=== PATIENT | male | born 1960 | race Caucasian/White ===

== ENCOUNTER 2022-04-20 09:45 | Inpatient (IN) | payer MEDICAID, SELFPAY ==
[2022-04-20] VITALS (64 sets, daily range): BP systolic 114–157; BP diastolic 70–97; PULSE 95–116; RESP 14–26; TEMP 36.5–36.6; O2SAT 66–99; BMI 29.3
--- NOTE | 2022-04-20 09:51 | USCV_ITS ---
Doc Adam Age: 61 Gender: M : 1960 Exam Date: 04/20/2022 10:21 Ordering Phys: Malachi Wallis MD Technologist: Salomon Peñaloza Exam Location: [facility] [place] Indication: copd BP: 127 / 97 HR: 100 Rhythm: Sinus Technical Quality: Technically difficult study MEASUREMENTS (Male / Female) Normal Values 2D ECHO LVOT Diameter 2.0 cm LV Ejection Fraction MOD 2C 66.0 % LV Ejection Fraction 2C AL 66.4 % LA Diameter 3.6 cm Aorta at Sinotubular Diameter 2.5 cm DOPPLER MV Area PHT 5.0 cm squared Mitral E to A Ratio 0.8 MV E' Velocity 51.0 cm/s Mitral E to LV E' Septal Ratio 5.8 FINDINGS Left Ventricle Normal left ventricular size, systolic function and wall thickness, with no regional wall motion abnormalities. Normal left ventricular wall thickness. Right Ventricle The right ventricle is normal in size and function. Right Atrium The right atrium is normal in size. Left Atrium The left atrium is normal in size. Mitral Valve There is no mitral regurgitation. Aortic Valve There is no aortic regurgitation. Tricuspid Valve There is no tricuspid regurgitation. Pulmonic Valve There is no pulmonic regurgitation. Pericardium Normal pericardium without effusion. Aorta IVC CONCLUSIONS Technically difficult study Normal left ventricular size, systolic function and wall thickness, with no regional wall motion abnormalities. Normal left ventricular wall thickness. Esteban Tavares MD (Electronically Signed) Final Date: 20 April 2022 15:55 S
[2022-04-20 09:54] LABS: ABG PCO2 58.2 mmHg (35-45); ABG PH Result 7.45 (7.35-7.45); Base Excess ABG 13.2 mmol/L (-2.0-2.0); Blood Gas Operator Identificat AMH; Blood Gas Sample Site Brachial, right; Blood Gas Sample Type Arterial; Oxygen Device NC; PO2 ABG 83.8 mmHg (80.0-100.0)
[2022-04-20] MEDS: ipratropium-albuterol 3 mL Neb INHALATION ×3 (10:04→16:18)
[2022-04-20] MEDS: budesonide 0.5 mg/2 mL Neb INHALATION (10:04)
--- NOTE | 2022-04-20 10:06 | ECG_ITS ---
[facility] Test Date: 2022-04-20 Pat Name: Doc Adam Department: Room: 104 Gender: Male Tufter: : 1960 Requested By: Malachi Wallis Order Number: [id number] Raffi MD: Amy Deng M.D. Measurements Intervals [place] Rate: 103 P: 21 IN: 142 QRS: 69 QRSD: 84 T: 67 QT: 334 QTc: 438 Interpretive Statements SINUS TACHYCARDIA ABNORMAL RHYTHM ECG No previous ECG available for comparison Electronically Signed On 04-21-2022 7:06:08 ANESTHESIA TECHNICIAN by Amy Deng M.D. [id number]
[2022-04-20 10:24] LABS: Basophils % 0.1 %; Hematocrit 43.3 % (42.0-52.0); Hemoglobin 13.8 g/dL (11.7-16.6); Lymphocytes # 0.5 10^3/uL (0.8-4.8); Lymphocytes % 2.4 %; Mean Corpuscular HGB Conc 31.9 g/dL (30.0-36.0); Mean Corpuscular Volume 100.5 fl (80-94); Mean Platelet Volume 10.9 fL (7.4-10.4); Monocytes # 0.4 10^3/uL (0.2-0.9); Monocytes % 2.4 %; Neutrophils # 17.49 10^3/uL (1.8-7.7); Neutrophils % 94.5 %; Nucleated Red Blood Cells % 0 %; Platelet Count 200 10^3/cmm (130-400); Red Blood Count 4.31 10^6/uL (4.1-5.3); Red Cell Distribution Width 13.5 % (12.1-15.1); White Blood Count 18.5 10^3/uL (4.0-10.0)
--- NOTE | 2022-04-20 10:33 | USCV_ITS ---
Kia Doc Age: 61 Gender: M : 1960 Exam Date: 04/20/2022 10:42 Ordering Phys: Malachi Wallis MD Technologist: Salomon Peñaloza Exam Location: [facility] Indication: lt arm swelling PROCEDURES: Venous duplex imaging was performed in only the left upper extremity. The following venous structures were evaluated: internal jugular vein, subclavian vein, axillary vein, and brachial veins. In addition, the basilic vein and cephalic vein. FINDINGS: No evidence of deep vein thrombosis or superficial thrombophlebitis in the left upper extremity. CONCLUSIONS No evidence of thrombus of the left upper extremity veins. Roddy Urban MD (Electronically Signed) Final Date: 20 April 2022 13:54 S
[2022-04-20 10:38] LABS: Estmated Average Glucose 229; Hemoglobin A1C 9.6 % (4.0-6.0)
--- NOTE | 2022-04-20 10:43 | PM.HP ---
Providers/Chief Complaint Admitting Physician: Iam Ceballos Primary Care Provider: AYAN Provider Chief Complaint: COPD Exaberation History of Present Illness Doc Adam is a 61 year old male with a past medical history of COPD oxygen dependent, history of CHF, insulin-dependent type 2 diabetes mellitus, hypertension, who presents [facility] as a transfer from [facility] due to shortness of breath. Patient tells me that he quit smoking a few weeks ago, he has COPD, oxygen dependent, he has been increasingly short of breath, increased productive cough, he is received a flu vaccine, has received his COVID-vaccine. But he progressively felt more short of breath, increased productive cough, also complaining of substernal chest pain. No cardiovascular history, no history of CAD, history of stenting, no history of stress testing. He presented to [facility], was diagnosed with acute hypoxic hypercarbic respiratory failure, transition to BiPAP, tolerated BiPAP well, had a CT angiogram of his chest no acute pulmonary embolism, but did find bronchiolitis, and emphysema, had leukocytosis over 25,000, neutrophilic, had received Solu-Medrol, Levaquin, transferred to [facility] for further evaluation. Currently he is alert oriented x3, normal canal, he is on 3 L, but being put on BiPAP, he feels better. Review of Systems Const: Denies: fever(s) Eyes: Denies: change in vision Card: Denies: chest pain Resp: Reports: dyspnea GI: Denies: abdominal pain : Denies: flank pain Musc: Denies: back pain Skin/Breast: Denies: rash Neuro: Denies: headache(s) Medications/Allergies Allergies Allergy/AdvReac Type Severity Reaction Status Date / Time No Known Allergies Allergy Unverified 04/20/22 10:54 PFSH Acute PFSH: Medical History (Updated 04/20/22 @ 10:51 by Malachi Wallis MD) CHF (congestive heart failure) Chronic pain Hypertension Insulin dependent type 2 diabetes mellitus Surgical History (Updated 04/20/22 @ 10:48 by Malachi Wallis MD) History of cholecystectomy Family History (Updated 04/20/22 @ 10:49 by Malachi Wallis MD) Mother Lung disease Father COPD (chronic obstructive pulmonary disease) Social History (Updated 11/14/22 @ 10:49 by Malachi Wallis MD) Smoking and tobacco status: current some day smoker Alcohol intake: never Substance/Drug Use: never Vitals/I&O/Wt Last Vital Signs Pulse 103 H 04/20/22 10:14 Resp 16 04/20/22 10:14 Pulse Ox 95 04/20/22 10:14 O2 Del Method 04/20/22 10:14 FiO2 35 04/20/22 10:14 Physical Exam Const: COMMON NORMALS: no acute distress and patient oriented x3 HENMT: COMMON NORMALS: normocephalic HEAD & SCALP: normocephalic Eye: COMMON NORMALS: Equal, round and reactive pupils present and EOMs intact bilaterally Neck/C-Spine: COMMON NORMALS: no JVD Lymph: LYMPHATIC: no lymphadenopathy noted Chest: OTHER: Checks his hyperinflated Resp: COMMON NORMALS: normal respiratory effort, No retractions and No use of accessory muscles AUSCULTATION: diminished lung sounds diffuse Cardio: COMMON NORMALS: no JVD, regular rate, regular rhythm, S1 normal heart sound present and S2 normal heart sound present RATE: regular rate RHYTHM: regular rhythm HEART SOUNDS: S1 normal heart sound present and S2 normal heart sound present OTHER: Chest hyperinflated, past expiratory wheezing, also scattered wheezing GI: COMMON NORMALS: Normal to inspection, nondistended, normoactive bowel sounds present, Soft to palpation, non-tender, No hepatosplenomegaly present, no masses and no bruits PALPATION: Yes Soft to palpation Extremity: COMMON NORMALS: capillary refill normal, no clubbing, cyanosis or edema, no calf tenderness and no pedal edema Neuro: COMMON NORMALS: patient oriented x3, CN's II-XII intact bilaterally, moves all extremities and no focal motor deficits Psych: COMMON NORMALS: mental status grossly normal Data : 04/20/22 10:15 04/20/22 10:15 Micro: Microbiology 04/20/22 10:05 Blood Culture - Preliminary Blood SPECIMEN COLLECTED 04/20/22 10:15 Blood Culture - Preliminary Blood SPECIMEN COLLECTED A&P Assessment and plan (1) Acute respiratory failure with hypoxia and hypercapnia: (2) COPD exacerbation: (3) Bronchiolitis: (4) Chest pain: Plan Acute hypoxic respiratory failure with hypoxia and hypercarbia -Secondary to COPD exacerbation Plan -Obtain ABG -Obtain rapid flu, COVID PCR negative at [place] -Start Rocephin and azithromycin -Solu-Medrol 40 IV every 8 hours -Continue BiPAP as needed during the day, scheduled during the night -Monitor respiratory status closely -Full code -Lovenox for DVT prophylaxis History of CHF, BnP not significantly elevated at [facility], does not look fluid overloaded -Repeat BnP -Lasix 40 IV once daily Chest pain complaints -Serial EKGs serial troponins telemetry monitoring, cardiac echo -Aspirin, statin COPD, as above Does have bronchiolitis, viral respiratory panel, flu Insulin-dependent type 2 diabetes mellitus he is not sure on his Lantus dose will have to do medication reconciliation, but he thinks he takes Lantus 30 units twice daily -Lantus 10 units every 12 hours, low-dose sliding scale Chronic pain -We will have to clarify his dose of MS Contin, hydrocodone Chronic anxiety, he takes diazepam we will need to clarify his dose Attestations Medical Necessity Statement*: Patient requires hospitalization, inpatient, greater than 2 midnights, for acute hypoxic respiratory failure secondary to COPD, bronchiolitis, chest pain Coding Level of Care Code Acute Business Services Sales Agent for Marge Olea Diagnoses Acute respiratory failure with hypoxia and hypercapnia J96.01; J96.02 COPD exacerbation J44.1 Bronchiolitis J21.9 Chest pain R07.9
[2022-04-20 10:51] LABS: Lactate (Lactic Acid level) 1.5 mmol/L (0.5-2.2)
[2022-04-20 11:02] LABS: Influenza A by IFA Negative (Negative); Influenza B by IFA Negative (Negative)
[2022-04-20 11:03] LABS: Albumin Level 3.7 g/dL (3.5-5.2); Alkaline Phosphatase 92 U/L (40-130); Blood Urea Nitrogen 19 mg/dL (8-23); Calcium 9.6 mg/dL (8.5-10.5); Carbon Dioxide 35 mmol/L (22-29); Chloride 88 mmol/L (98-107); Globulin 2.9 g/dL (1.3-4.6); Glomerular Filtration Rate 114.6 mL/min (90-130); Glucose 244 mg/dL (65-115); Magnesium 1.9 mg/dL (1.7-2.3); NT Pro B Type Natriuretic Pept 144 pg/mL (0-125); Osmolality Calculated 286 mOsm/kg (285-295); Sodium 133 mmol/L (136-145); Total Bilirubin 0.6 mg/dL (0.15-1.2); Total Protein 6.6 g/dL (6.6-8.7)
[2022-04-20 11:06] LABS: Procalcitonin 0.13 ng/mL (0-0.5); Thyroid Stimulating Hormone 0.08 uIU/mL (0.27-4.20)
[2022-04-20 11:07] LABS: Alanine Aminotransferase 28 U/L (0-41); Anion Gap 15.3 (5-19); Aspartate Amino Transferase 27 U/L (0-40); Potassium 5.3 mmol/L (3.5-5.1)
[2022-04-20 11:17] LABS: C Reactive Protein 40.1 mg/L (0.0-4.9)
[2022-04-20] MEDS: pantoprazole 40 mg SDV IVP (11:23)
[2022-04-20] MEDS: azithromycin 500 MG in sodium chloride 0.9% 250 ML 250 MG IV (11:23)
[2022-04-20] MEDS: enoxaparin 40 mg/0.4 mL Syringe SUBCUT (11:24)
[2022-04-20] MEDS: FUROsemide 10 mg/mL SDV 4mL 40 MG IVP (11:25)
[2022-04-20] MEDS: perflutren protein-a microsphr 0.22 mg/mL SDV 3 mL IV (11:25)
[2022-04-20 11:31] LABS: Troponin(5th) Baseline 20 ng/L (0-15)
[2022-04-20] MEDS: aspirin 81 mg EC Tablet PO (11:35)
[2022-04-20] MEDS: cefTRIAXone 1,000 mg SDV 1000 MG (11:35)
[2022-04-20] MEDS: cefTRIAXone 1,000 MG in sodium chloride 0.9% (plus) 50 ML 100 MG IV (11:35)
[2022-04-20] MEDS: insulin glargine 100 units/1 mL 10 UNIT SUBCUT (12:03)
[2022-04-20] MEDS: insulin lispro 100 unit/1 mL SUBCUT ×3 (12:18→21:09)
[2022-04-20 12:50] LABS: Glucose Point of Care 227 mg/dL (70-110)
[2022-04-20] MEDS: HYDROcodone-acetaminophen 10-325 mg Tablet 1 TAB PO ×2 (13:09→17:27)
[2022-04-20] MEDS: morphine ER (12 HR) 30 mg tablet 60 MG PO ×2 (13:15→20:09)
[2022-04-20 13:18] LABS: Troponin 5 2HR 18.22 ng/L (0-15)
[2022-04-20 13:28] LABS: Troponin 5 2HR Delta -1.78 ABS# (0-10)
[2022-04-20 14:24] LABS: Adenovirus Not Detected (NOT DETECT); Chlamydia Pneumoniae Not Detected (NOT DETECT); Coronavirus 229E,HKU1,NL63,OC4 Not Detected (NOT DETECT); Human Metapneumovirus Not Detected (NOT DETECT); Human Rhinovirus/Enterovirus Not Detected (NOT DETECT); Influenza A Not Detected (NOT DETECT); Influenza A H1 Not Detected (NOT DETECT); Influenza A H1-2009 Not Detected (NOT DETECT); Influenza A H3 Not Detected (NOT DETECT); Influenza B Not Detected (NOT DETECT); Mycoplasma Pneumoniae Not Detected (NOT DETECT); Parainfluenza Virus Type 1 Not Detected (NOT DETECT); Parainfluenza Virus Type 2 Not Detected (NOT DETECT); Parainfluenza Virus Type 3 Not Detected (NOT DETECT); Parainfluenza Virus Type 4 Not Detected (NOT DETECT); Respiratory Syncytial Virus A Not Detected (NOT DETECT); Respiratory Syncytial Virus B Not Detected (NOT DETECT); SARS-COV-2 Not Detected (NOT DETECT)
[2022-04-20 14:45] LABS: Free T4 Free Thyroxine 1.22 ng/dL (0.82-1.77); T3 Free 3.5 PG/ML (2.0-4.4)
--- NOTE | 2022-04-20 15:04 | PC.NURSE ---
received from [facility] via stretcher..(transfer from [facility]) at 0935.report received.pt is alert and oriented x 4.placed on bipab by rt at 35 % fio2.not in active resp distress.sr-st on monitor.denies pain at present.oriented to room environment.instructed to notify staff for any sob,cp..or any pain..or any concerns at all.pt verb understanding of instructions.
--- NOTE | 2022-04-20 15:09 | PC.NURSE ---
the iv pt had been transferred with from [facility],was displaced on admission.required ultrasound to find another iv spot for iv (right upper arm).pt started c/o of severe pain in right lower/inner forearm at approx 1100.pain then travelled up arm..to upper arm area.pain reported as 10/10.pt's stated that this occurred at last admission to [facility] ,as well...and the only thing that relieved the pain,was to remove iv.they both demanded that new iv removed,so it was.ice applied ,pain medication given..and pain subsided.midline catheter inserted by gi lab staff in left upper inner arm with out difficulty.
[2022-04-20] MEDS: sodium polystyrene sulfonate 15 gm/60 mL Btl PO (15:35)
--- NOTE | 2022-04-20 15:43 | ECG_ITS ---
[facility] Test Date: 2022-04-20 Pat Name: Doc Adam Department: Room: 104 Gender: Male [employer]: : 1960 Requested By: Malachi Wallis Order Number: [id number] Raffi MD: Amy Deng M.D. Measurements Intervals [place] Rate: 114 P: 64 ND: 150 QRS: 71 QRSD: 74 T: 63 QT: 320 QTc: 441 Interpretive Statements SINUS TACHYCARDIA SEPTAL MYOCARDIAL INFARCTION , PROBABLY OLD [40+ ms Q WAVE IN V1/V2] Compared to ECG 04/20/2022 10:06:35 Myocardial infarct finding now present Electronically Signed On 04-21-2022 7:20:42 REFRIGERATING TECHNICIAN by Amy Deng M.D. [id number]
[2022-04-20 16:44] LABS: Troponin 5 6HR 22.41 ng/L (0-15)
[2022-04-20 16:46] LABS: Troponin 5 6HR Delta 2.41 ng/L (0-12)
[2022-04-20 17:09] LABS: Glucose Point of Care 158 mg/dL (70-110)
[2022-04-20] MEDS: pregabalin 75 mg Capsule PO (17:27)
[2022-04-20] MEDS: atorvastatin 40 mg Tablet PO (20:09)
[2022-04-20 20:54] LABS: Glucose Point of Care 156 mg/dL (70-110)
[2022-04-20] MEDS: insulin glargine 100 units/1 mL 20 UNIT SUBCUT (21:10)
[2022-04-21] VITALS (124 sets, daily range): BP systolic 100–134; BP diastolic 70–97; PULSE 89–127; RESP 11–27; TEMP 36.5–37.1; O2SAT 88–100
[2022-04-21] MEDS: ipratropium-albuterol 3 mL Neb INHALATION ×6 (00:45→20:46)
[2022-04-21 05:21] LABS: Basophils % 0.1 %; Hematocrit 40.6 % (42.0-52.0); Lymphocytes # 0.9 10^3/uL (0.8-4.8); Lymphocytes % 3.2 %; Mean Corpuscular Hemoglobin 31.6 pg (28.0-34.0); Mean Corpuscular Volume 98.5 fl (80-94); Mean Platelet Volume 10.8 fL (7.4-10.4); Monocytes # 1.4 10^3/uL (0.2-0.9); Neutrophils # 25.73 10^3/uL (1.8-7.7); Neutrophils % 90.9 %; Nucleated Red Blood Cells % 0 %; Platelet Count 264 10^3/cmm (130-400); Red Blood Count 4.12 10^6/uL (4.1-5.3); Red Cell Distribution Width 13.6 % (12.1-15.1); White Blood Count 28.3 10^3/uL (4.0-10.0)
[2022-04-21 05:54] LABS: NT Pro B Type Natriuretic Pept 214 pg/mL (0-125)
[2022-04-21 06:07] LABS: Alanine Aminotransferase 22 U/L (0-41); Albumin Level 3.5 g/dL (3.5-5.2); Alkaline Phosphatase 81 U/L (40-130); Anion Gap 14.6 (5-19); Aspartate Amino Transferase 14 U/L (0-40); Blood Urea Nitrogen 23 mg/dL (8-23); C Reactive Protein 34.6 mg/L (0.0-4.9); Calcium 9.1 mg/dL (8.5-10.5); Carbon Dioxide 38 mmol/L (22-29); Chloride 88 mmol/L (98-107); Globulin 3.1 g/dL (1.3-4.6); Glomerular Filtration Rate 114.6 mL/min (90-130); Glucose 170 mg/dL (65-115); Osmolality Calculated 292 mOsm/kg (285-295); Phosphorus 3.8 mg/dL (2.5-4.5); Potassium 3.6 mmol/L (3.5-5.1); Sodium 137 mmol/L (136-145); Total Bilirubin 0.4 mg/dL (0.15-1.2); Total Protein 6.6 g/dL (6.6-8.7)
[2022-04-21 06:26] LABS: Glucose Point of Care 209 mg/dL (70-110)
[2022-04-21] MEDS: budesonide 0.5 mg/2 mL Neb INHALATION ×2 (08:03→20:47)
[2022-04-21] MEDS: morphine ER (12 HR) 30 mg tablet 60 MG PO ×2 (09:20→21:02)
[2022-04-21] MEDS: aspirin 81 mg EC Tablet PO (09:20)
[2022-04-21] MEDS: pregabalin 75 mg Capsule PO ×2 (09:21→17:10)
[2022-04-21] MEDS: enoxaparin 40 mg/0.4 mL Syringe SUBCUT (09:27)
[2022-04-21] MEDS: insulin glargine 100 units/1 mL 20 UNIT SUBCUT ×2 (09:27→21:01)
[2022-04-21] MEDS: FUROsemide 10 mg/mL SDV 4mL 40 MG IVP (09:28)
[2022-04-21] MEDS: pantoprazole 40 mg SDV IVP (09:29)
[2022-04-21] MEDS: insulin lispro 100 unit/1 mL SUBCUT ×4 (09:29→21:02)
[2022-04-21] MEDS: cefTRIAXone 1,000 MG in sodium chloride 0.9% (plus) 50 ML 100 MG IV (10:52)
--- NOTE | 2022-04-21 11:17 | P.PN_ITS ---
Subjective Subjective: Patient was seen this morning, is at bedside, he tells me he feels better, but continues to have intermittent wheezing, feels short of breath, no chest pain, no palpitations, Vitals/I&O/Wt Last Vital Signs Temp 97.9 F 04/21/22 04:08 Pulse 100 04/21/22 08:00 Resp 16 04/21/22 09:20 BP 123/97 04/21/22 04:05 Pulse Ox 97 04/21/22 08:00 O2 Del Method 04/21/22 08:00 O2 Flow Rate 4 04/21/22 08:00 FiO2 35 04/21/22 04:10 04/20/22 04/21/22 04/21/22 22:59 06:59 14:59 Intake Total 310 / 600 250 / 850 Balance 310 / 0 250 / 250 Weight last 48 hrs Weight 87.628 kg Physical Exam Const: COMMON NORMALS: no acute distress and patient oriented x3 Resp: COMMON NORMALS: normal respiratory effort, No retractions and No use of accessory muscles AUSCULTATION: wheezes OTHER: Chest hyperinflated Cardio: COMMON NORMALS: regular rate, regular rhythm, S1 normal heart sound present and S2 normal heart sound present RATE: regular rate RHYTHM: regular rhythm HEART SOUNDS: S1 normal heart sound present and S2 normal heart sound present GI: COMMON NORMALS: Normal to inspection, nondistended, normoactive bowel sounds present and non-tender Extremity: COMMON NORMALS: no pedal edema Neuro: COMMON NORMALS: patient oriented x3 Psych: COMMON NORMALS: mental status grossly normal Data 04/21/22 04:35 04/21/22 04:35 Micro: Microbiology 04/20/22 10:05 Blood Culture - Preliminary Blood NEGATIVE TO DATE 04/20/22 10:15 Blood Culture - Preliminary Blood NEGATIVE TO DATE A&P Assessment and plan (1) Acute respiratory failure with hypoxia and hypercapnia: (2) COPD exacerbation: (3) Bronchiolitis: (4) Chest pain: Plan Acute hypoxic respiratory failure with hypoxia and hypercarbia -Secondary to COPD exacerbation Plan -Continue Rocephin and azithromycin -Solu-Medrol 40 IV every 8 hours -Continue BiPAP as needed during the day, scheduled during the night -Monitor respiratory status closely -Full code -Lovenox for DVT prophylaxis History of CHF, BnP not significantly elevated at [facility], does not look fluid overloaded -Lasix 40 IV once daily Chest pain complaints -Serial EKGs serial troponins telemetry monitoring, cardiac echo difficult quality study, but EF within normal limits -Aspirin, statin COPD, as above Does have bronchiolitis, monitor Insulin-dependent type 2 diabetes mellitus he is not sure on his Lantus dose will have to do medication reconciliation, but he thinks he takes Lantus 30 units twice daily -Lantus 20 units every 12 hours, low-dose sliding scale Chronic pain -Continue MS Contin, hydrocodone Chronic anxiety, he takes diazepam we will need to clarify his dose Attestations Medical Necessity Statement*: Patient requires hospitalization for acute hypoxic respiratory failure, CHF inpatient, presented with Coding Level of Care Code Acute Enterprise Integration Architect for Marge Olea Diagnoses Acute respiratory failure with hypoxia and hypercapnia J96.01; J96.02 COPD exacerbation J44.1 Bronchiolitis J21.9 Chest pain R07.9
[2022-04-21 12:04] LABS: Glucose Point of Care 250 mg/dL (70-110)
--- NOTE | 2022-04-21 12:27 | PC.CHAP ---
Pastoral Care Encounter/Spiritual Assessment Type of Contact [] Declined substation mechanic visit [] Patient/Family/Request visit [] Outpatient visit [] Follow-up visit [] Physician referral [] Code/Alert [x] Routine visit [] Staff referral [] Actively dying [] Patient sleeping [x] Family support [] [] Out of room [] Palliative care [] [] Receiving care in room [] Pre-surgical visit [] Trauma [] Long length of stay [] ICU visit [] Other: Relational/Emotional Strength [] Patient feels connected with others/family/visitors/staff [] Distress [] Loneliness/isolation [] Abandonment Spirituality of Patient [x] Person of Danay [] Attends Jainism of their Danay [x] Believes in Prayer [] Reads Bible or Mormonism materials [] There are Spiritual issues to be addressed Utility Sales Representative Interventions [x] Prayer [] Active listening [] Non-anxious presence [] Spiritual/emotional support [] Crisis/trauma care [] Spiritual counseling [] Bereavement support [] Provided bereavement packet [] Provided Bible/devotional materials [] Provided toy/stuffed animal, coloring book to patient or family member [] Provided Communion [] Anointing/[place] [] Salvation [x] Completed spiritual assessment [] Other: Impact on Illness or Injury [] Angry [] Fearful [] Anxious [] Often cries [] Exhaustion [] Unable to work [] Unable to attend baptism [] Unable to walk/stand [] Unable to read [] Unable to drive [] Unable to eat/drink [] Unable to sleep [] Unable to be with family [] Patient intubated [] Other: Summary Time spent with patient 5 min
[2022-04-21] MEDS: HYDROcodone-acetaminophen 10-325 mg Tablet 1 TAB PO (12:49)
[2022-04-21] MEDS: azithromycin 500 MG in sodium chloride 0.9% 250 ML 250 MG IV (13:53)
[2022-04-21] MEDS: alteplase 1 mg/mL SDV 2 mL 2 MG INTRACATH (16:32)
[2022-04-21 17:26] LABS: Glucose Point of Care 235 mg/dL (70-110)
[2022-04-21 20:53] LABS: Glucose Point of Care 293 mg/dL (70-110)
[2022-04-21] MEDS: atorvastatin 40 mg Tablet PO (21:02)
[2022-04-22] VITALS (11 sets, daily range): BP systolic 122–125; BP diastolic 78–82; PULSE 74–107; RESP 17–23; TEMP 36.7; O2SAT 90–97
[2022-04-22] MEDS: ipratropium-albuterol 3 mL Neb INHALATION ×4 (00:09→11:29)
[2022-04-22 05:48] LABS: Basophils % 0.1 %; Hematocrit 39.4 % (42.0-52.0); Hemoglobin 12.5 g/dL (11.7-16.6); Lymphocytes # 0.7 10^3/uL (0.8-4.8); Lymphocytes % 3.1 %; Mean Corpuscular HGB Conc 31.7 g/dL (30.0-36.0); Mean Corpuscular Hemoglobin 31.6 pg (28.0-34.0); Mean Corpuscular Volume 99.5 fl (80-94); Mean Platelet Volume 11.2 fL (7.4-10.4); Monocytes # 1.4 10^3/uL (0.2-0.9); Monocytes % 5.9 %; Neutrophils # 20.72 10^3/uL (1.8-7.7); Neutrophils % 90.3 %; Nucleated Red Blood Cells % 0 %; Platelet Count 223 10^3/cmm (130-400); Red Blood Count 3.96 10^6/uL (4.1-5.3); Red Cell Distribution Width 13.5 % (12.1-15.1)
[2022-04-22 06:15] LABS: NT Pro B Type Natriuretic Pept 267 pg/mL (0-125); Procalcitonin 0.08 ng/mL (0-0.5)
[2022-04-22 06:27] LABS: Alanine Aminotransferase 20 U/L (0-41); Albumin Level 3.3 g/dL (3.5-5.2); Alkaline Phosphatase 79 U/L (40-130); Aspartate Amino Transferase 12 U/L (0-40); Blood Urea Nitrogen 26 mg/dL (8-23); C Reactive Protein 15.5 mg/L (0.0-4.9); Calcium 9.1 mg/dL (8.5-10.5); Chloride 86 mmol/L (98-107); Globulin 3.3 g/dL (1.3-4.6); Glomerular Filtration Rate 85.8 mL/min (90-130); Glucose 242 mg/dL (65-115); Magnesium 2.1 mg/dL (1.7-2.3); Osmolality Calculated 293 mOsm/kg (285-295); Phosphorus 3.9 mg/dL (2.5-4.5); Sodium 135 mmol/L (136-145); Total Bilirubin 0.3 mg/dL (0.15-1.2); Total Protein 6.6 g/dL (6.6-8.7)
[2022-04-22 06:39] LABS: Glucose Point of Care 277 mg/dL (70-110)
[2022-04-22 06:40] LABS: Carbon Dioxide 41 mmol/L (22-29)
[2022-04-22] MEDS: budesonide 0.5 mg/2 mL Neb INHALATION (07:37)
[2022-04-22] MEDS: HYDROcodone-acetaminophen 10-325 mg Tablet 1 TAB PO ×2 (07:48→12:01)
[2022-04-22] MEDS: insulin lispro 100 unit/1 mL SUBCUT ×2 (07:48→11:47)
[2022-04-22] MEDS: aspirin 81 mg EC Tablet PO (08:54)
[2022-04-22] MEDS: pregabalin 75 mg Capsule PO (08:54)
[2022-04-22] MEDS: morphine ER (12 HR) 30 mg tablet 60 MG PO (08:54)
[2022-04-22 11:18] LABS: Glucose Point of Care 366 mg/dL (70-110)
[2022-04-22] MEDS: enoxaparin 40 mg/0.4 mL Syringe SUBCUT (11:47)
[2022-04-22] MEDS: cefTRIAXone 1,000 MG in sodium chloride 0.9% (plus) 50 ML 100 MG IV (11:48)
[2022-04-22] MEDS: pantoprazole 40 mg SDV IVP (11:48)
[2022-04-22] MEDS: insulin glargine 100 units/1 mL 20 UNIT SUBCUT (12:01)
--- NOTE | 2022-04-22 12:46 | PM.DCS ---
Discharge Providers Date of Admission: 04/20/22 09:45 Date of Discharge: April 22, 2022 Attending Provider at Admission: Iam Ceballos Attending Provider at Discharge: Malachi Wallis MD Primary Care Provider: AYAN Provider Diagnoses at Discharge Discharge Diagnosis (1) Acute respiratory failure with hypoxia and hypercapnia: Status: Acute (2) COPD exacerbation: Status: Acute (3) Bronchiolitis: Status: Acute (4) Chest pain: Status: Acute Reason for Visit Reason for Visit: COPD Exaberation Hospital Course Hospital Course Doc Adam is a 61 year old male with a past medical history of COPD oxygen dependent, history of CHF, insulin-dependent type 2 diabetes mellitus, hypertension, who presents [facility] as a transfer from [facility] due to shortness of breath Patient presents [facility] for acute hypoxic respiratory failure secondary to COPD exacerbation, received steroid therapy, BiPAP therapy, broad-spectrum antibiotic therapy clinically monitored. Patient clinically improved, will be discharged on a prednisone burst, doxycycline, with close follow-up with primary care provider as outpatient. In addition he is to follow-up with pulmonary as outpatient. He quit smoking 3 weeks ago, continue to not smoke, advised to monitor for fevers, worsening symptomatology. Physical Exam Const: COMMON NORMALS: no acute distress and patient oriented x3 Resp: COMMON NORMALS: normal respiratory effort, No retractions, No use of accessory muscles and clear to auscultation bilaterally AUSCULTATION: clear to auscultation bilaterally Cardio: COMMON NORMALS: regular rate, regular rhythm, S1 normal heart sound present and S2 normal heart sound present RATE: regular rate RHYTHM: regular rhythm HEART SOUNDS: S1 normal heart sound present and S2 normal heart sound present GI: COMMON NORMALS: Normal to inspection, nondistended, normoactive bowel sounds present, non-tender, no masses and no bruits Extremity: COMMON NORMALS: no pedal edema Neuro: COMMON NORMALS: patient oriented x3 Psych: COMMON NORMALS: mental status grossly normal Discharge Data Studies Completed and Pending Completed Studies During Hospitalization Category [place] [id number] Routine Ultrasound 04/20/22 10:33 Completed CV. echo wo/w contrast [id number] Routine Ultrasound 04/20/22 09:51 Completed Pending at discharge Category Date Time Status Blood Culture Stat Lab 04/20/22 10:05 Results C Reactive Protein AM LABS Lab 04/23/22 04:00 Ordered Complete Blood Count w/Auto AM LABS Lab 04/23/22 04:00 Ordered Comprehensive Metabolic Panel AM LABS Lab 04/23/22 04:00 Ordered Magnesium AM LABS Lab 04/23/22 04:00 Ordered NT Pro B Type Natriuretic Pept QAM Lab 04/23/22 06:00 Ordered Phosphorus AM LABS Lab 04/23/22 04:00 Ordered Procalcitonin AM LABS Lab 04/23/22 04:00 Ordered Sputum Culture and Gram Stain Stat Lab 04/20/22 13:00 Results Laboratory Results WBC 23.0 10^3/uL (4.0-10.0) H 04/22/22 04:49 RBC 3.96 10^6/uL (4.1-5.3) L 04/22/22 04:49 Hgb 12.5 g/dL (11.7-16.6) 04/22/22 04:49 Hct 39.4 % (42.0-52.0) L 04/22/22 04:49 MCV 99.5 fl (80-94) H 04/22/22 04:49 MCH 31.6 pg (28.0-34.0) 04/22/22 04:49 MCHC 31.7 g/dL (30.0-36.0) 04/22/22 04:49 RDW 13.5 % (12.1-15.1) 04/22/22 04:49 Plt Count 223 10^3/cmm (130-400) 04/22/22 04:49 MPV 11.2 fL (7.4-10.4) H 04/22/22 04:49 Neut % (Auto) 90.3 % 04/22/22 04:49 Lymph % (Auto) 3.1 % 04/22/22 04:49 [place] % (Auto) 5.9 % 04/22/22 04:49 Eos % (Auto) 0.0 % 04/22/22 04:49 Baso % (Auto) 0.1 % 04/22/22 04:49 Neut # (Auto) 20.72 10^3/uL (1.8-7.7) H 04/22/22 04:49 Lymph # (Auto) 0.7 10^3/uL (0.8-4.8) L 04/22/22 04:49 [place] # (Auto) 1.4 10^3/uL (0.2-0.9) H 04/22/22 04:49 Eos # (Auto) 0.0 10^3/uL (0.0-0.8) 04/22/22 04:49 Baso # (Auto) 0.0 10^3/uL (0.0-0.1) 04/22/22 04:49 Nucleated RBC % (auto) 0 % 04/22/22 04:49 Nucleated RBCs # 0.0 /100WBC 04/22/22 04:49 Specimen Type Arterial 04/20/22 09:42 Sample Site Brachial, right 04/20/22 09:42 ABG pH 7.45 (7.35-7.45) 04/20/22 09:42 ABG pCO2 58.2 mmHg (35-45) H 04/20/22 09:42 ABG pO2 83.8 mmHg (80.0-100.0) 04/20/22 09:42 ABG HCO3 40.0 mmol/L (22-26) H 04/20/22 09:42 ABG Base Excess 13.2 mmol/L (-2.0-2.0) H 04/20/22 09:42 [place] Test N/a 04/20/22 09:42 Hematocrit 43.0 % (42-52) 04/20/22 09:42 O2 Delivery Device Nc 04/20/22 09:42 O2 Liters/Min 5.0 % 04/20/22 09:42 FiO2 40.0 % 04/20/22 09:42 Centerless Grinder ID Amh 04/20/22 09:42 Sodium 135 mmol/L (136-145) L 04/22/22 04:49 Potassium 4.0 mmol/L (3.5-5.1) 04/22/22 04:49 Chloride 86 mmol/L (98-107) L 04/22/22 04:49 Carbon Dioxide 41 mmol/L (22-29) H 04/22/22 04:49 Anion Gap 12.0 (5-19) 04/22/22 04:49 BUN 26 mg/dL (8-23) H 04/22/22 04:49 Creatinine 0.9 mg/dL (0.7-1.2) 04/22/22 04:49 GFR Calculation 85.8 mL/min (90-130) L 04/22/22 04:49 Glucose 242 mg/dL (65-115) H 04/22/22 04:49 POC Glucose 366 mg/dL (70-110) H 04/22/22 11:14 Estimat Average Glucose 229 04/20/22 10:15 Hemoglobin A1c 9.6 % (4.0-6.0) H 04/20/22 10:15 Calculated Osmolality 293 mOsm/kg (285-295) 04/22/22 04:49 Lactate 1.5 mmol/L (0.5-2.2) 04/20/22 10:15 Calcium 9.1 mg/dL (8.5-10.5) 04/22/22 04:49 Phosphorus 3.9 mg/dL (2.5-4.5) 04/22/22 04:49 Magnesium 2.1 mg/dL (1.7-2.3) 04/22/22 04:49 Total Bilirubin 0.3 mg/dL (0.15-1.2) 04/22/22 04:49 AST 12 U/L (0-40) 04/22/22 04:49 ALT 20 U/L (0-41) 04/22/22 04:49 Alkaline Phosphatase 79 U/L (40-130) 04/22/22 04:49 Troponin T Baseline 20 ng/L (0-15) H 04/20/22 10:15 Troponin T 120 Minute 18.22 ng/L (0-15) H 04/20/22 12:28 Delta Troponin T -1.78 ABS# (0-10) L 04/20/22 12:28 Troponin T Hi Sens 6Hr 22.41 ng/L (0-15) H 04/20/22 16:01 Troponin T Hi Sens 6Hr Delta 2.41 ng/L (0-12) 04/20/22 16:01 C-Reactive Protein 15.5 mg/L (0.0-4.9) H 04/22/22 04:49 NT-Pro-B Natriuret Pep 267 pg/mL (0-125) H 04/22/22 04:49 Total Protein 6.6 g/dL (6.6-8.7) 04/22/22 04:49 Albumin 3.3 g/dL (3.5-5.2) L 04/22/22 04:49 Globulin 3.3 g/dL (1.3-4.6) 04/22/22 04:49 Procalcitonin 0.08 ng/mL (0-0.5) 04/22/22 04:49 TSH 0.08 uIU/mL (0.27-4.20) L 04/20/22 10:15 Free T4 1.22 ng/dL (0.82-1.77) 04/20/22 12:28 Free T3 3.5 PG/ML (2.0-4.4) 04/20/22 12:28 Nasal Influ A H1 2009 PCR Not detected (NOT DETECT) 04/20/22 10:40 Adenovirus (PCR) Not detected (NOT DETECT) 04/20/22 10:40 C. pneumoniae DNA (PCR) Not detected (NOT DETECT) 04/20/22 10:40 Coronavirus 229E (PCR) Not detected (NOT DETECT) 04/20/22 10:40 Human Metapneumovir PCR Not detected (NOT DETECT) 04/20/22 10:40 Influenza A (H1) PCR Not detected (NOT DETECT) 04/20/22 10:40 Influenza A (H3) PCR Not detected (NOT DETECT) 04/20/22 10:40 Influenza Type A Ag Negative (Negative) 04/20/22 10:05 Influenza Type A (PCR) Not detected (NOT DETECT) 04/20/22 10:40 Influenza Type B Ag Negative (Negative) 04/20/22 10:05 Influenza Type B (PCR) Not detected (NOT DETECT) 04/20/22 10:40 M. pneumoniae (PCR) Not detected (NOT DETECT) 04/20/22 10:40 Parainfluenza 1 (PCR) Not detected (NOT DETECT) 04/20/22 10:40 Parainfluenza 2 (PCR) Not detected (NOT DETECT) 04/20/22 10:40 Parainfluenza 3 (PCR) Not detected (NOT DETECT) 04/20/22 10:40 Parainfluenza 4 (PCR) Not detected (NOT DETECT) 04/20/22 10:40 RSV Type A (PCR) Not detected (NOT DETECT) 04/20/22 10:40 RSV Type B (PCR) Not detected (NOT DETECT) 04/20/22 10:40 Entero/Rhino (PCR) Not detected (NOT DETECT) 04/20/22 10:40 SARS-CoV-2 (PCR) Not detected (NOT DETECT) 04/20/22 10:40 Vitals Last Vital Signs Temp 98.1 F 04/22/22 03:49 Pulse 100 04/22/22 11:33 Resp 18 04/22/22 11:33 BP 122/82 04/22/22 03:49 Pulse Ox 92 04/22/22 11:33 O2 Del Method 04/22/22 11:33 O2 Flow Rate 2 04/22/22 11:33 FiO2 35 04/21/22 04:10 Discharge Plan Discharge Patient Disposition: Home Condition: Stable Prescriptions: New aspirin 81 mg Tablet,Delayed Release (Dr/Ec) 81 mg PO DAILY 30 Days Qty: 30 0RF atorvastatin 40 mg Tablet 40 mg PO BEDTIME 30 Days Qty: 30 0RF prednisone 20 mg tablet 20 mg PO BID 5 Days Qty: 10 0RF doxycycline hyclate 100 mg tablet 100 mg PO BID 5 Days Qty: 10 0RF Continued albuterol sulfate 2.5 mg /3 mL (0.083 %) solution for nebulization 2.5 mg inhalation Q4H PRN (Reason: Shortness Of Breath Or Wheezing) cetirizine 10 mg tablet 10 mg PO DAILY PRN (Reason: Allergy Symptoms) hydrocodone-acetaminophen 10-325 mg tablet 1 tab PO Q4H PRN (Reason: Pain) potassium chloride 20 mEq tablet,ER particles/crystals 20 meq PO DAILY morphine 60 mg tablet extended release 60 mg PO BID Advair Diskus 500-50 mcg/dose blister with device 1 inh INHALATION DAILY omeprazole 20 mg capsule,delayed release(DR/EC) 20 mg PO DAILY budesonide 0.5 mg/2 mL suspension for nebulization 0.5 mg inhalation BID montelukast 10 mg tablet 10 mg PO DAILY ProAir HFA 90 mcg/actuation HFA aerosol inhaler 2 puff INHALATION Q4H PRN (Reason: Shortness Of Breath Or Wheezing) ondansetron 4 mg tablet,disintegrating 4 mg PO Q4H PRN (Reason: Nausea) diazepam 5 mg tablet 5 mg PO Q12H nicotine (polacrilex) 2 mg lozenge 2 mg PO Q2H PRN (Reason: Nicotine Cravings) Spiriva with HandiHaler 18 mcg capsule, w/inhalation device 1 cap INHALATION DAILY pregabalin 75 mg capsule 75 mg PO BID Lantus Solostar U-100 Insulin 100 unit/mL (3 mL) insulin pen 30 unit SUBCUT BID Men's 50 Plus Multivitamin 400-20-370 mcg Tablet 1 tab PO DAILY Bevespi Aerosphere 9-4.8 mcg HFA aerosol inhaler 2 puff INHALATION BID furosemide 40 mg tablet 40 mg PO DAILY prednisone 20 mg tablet 20 mg PO DAILY Discharge Orders: Discharge Order (Routine); Ordered 04/22/22 Ordered By: Malachi Wallis Referrals: Datar,Guero Pittman MD [Physician] - 2 weeks Discharge Diet: Cardiac Discharge Activity: Resume usual activity Patient Instructions: Doxycycline (By mouth), Prednisone (By mouth) (predniSONE Intensol, Prednicot, Deltasone, Roberta), Aspirin (By mouth), Atorvastatin (By mouth), Chest Pain (DC), Bronchiolitis (DC), COPD Stoplight, Chest Pain Stoplight, Opioid Safety Activity Restrictions/Additional Instructions: - Start your home prednisone after the prednisone burst has finished -Continue to quit smoking -Take antibiotics as prescribed -Please follow-up with pulmonary -Follow-up with a primary care in 1 week Discharge Attestations Time Spent in Discharge Care*: less than 30 min Quality Metrics Clinical Quality Measures [ No reported AMI, CVA or VTE this stay] Coding Level of Care Code Acute Chg FW DC note Diagnoses Acute respiratory failure with hypoxia and hypercapnia J96.01; J96.02 COPD exacerbation J44.1 Bronchiolitis J21.9 Chest pain R07.9
--- NOTE | 2022-04-22 13:58 | PC.NURSE ---
Discharge Note Patient discharged to home via w/c accompanied by spouse. Discharge instructions reviewed with patient and/or new accounts banking representative. Mobile pharmacy medications and/or prescriptions provided. Belongings/home medications returned.
== END 2022-04-22 14:00 | disposition home or self-care (01) | DRG 189 ==
PROVIDERS: Admitting Provider Internal Medicine; Visit Provider Family Medicine
DX: J96.01 Acute respiratory failure with hypoxia (principal); J21.9 Acute bronchiolitis, unspecified; J96.02 Acute respiratory failure with hypercapnia; J43.9 Emphysema, unspecified; Z99.81 Dependence on supplemental oxygen; I50.9 Heart failure, unspecified; I11.0 Hypertensive heart disease with heart failure; E11.9 Type 2 diabetes mellitus without complications; Z87.891 Personal history of nicotine dependence; Z86.16 Personal history of COVID-19; G89.29 Other chronic pain; F41.9 Anxiety disorder, unspecified; Z79.51 Long term (current) use of inhaled steroids; Z79.891 Long term (current) use of opiate analgesic; Z79.4 Long term (current) use of insulin
CPT/HCPCS: 36415; 36416; 36569; 36600; 80053; 82803; 82962; 83036; 83605; 83735; 83880; 84100; 84145; 84439; 84443; 84481; 84484; 85025; 86140; 87040; 87070; 87205; 87486; 87581; 87633; 87804; 93005; 93971; 94640; 94660; 94664; 96372; 97161; 97167; 97530; 97535; C1751; C8929; C9113; J0456; J0696; J1650; J1815; J1940; J2920; J2997; J7050; J7626; Q9956